=== PATIENT | female | born 1975 | race Hispanic/Latino ===

== ENCOUNTER 2024-11-01 12:29 | Emergency (ER) | payer OTHER ==
[2024-11-01] MEDS ORDERED: Acetaminophen 500 MG TAB ONE (12:57)
[2024-11-01] MEDS ORDERED: Magnesium 2 GM/50 ML BAG (IN WATER) ONE (13:47)
[2024-11-01] MEDS ORDERED: Dexamethasone 10 MG/ML VIAL ONE (13:48)
[2024-11-01] MEDS ORDERED: Ketorolac Tromethamine 30 MG (1 mL) VIAL ONE (13:48)
[2024-11-01] MEDS ORDERED: Lidocaine Viscous Sol 2% 15 ml UD Cup ONE (14:21)
[2024-11-01] MEDS ORDERED: Mag-Al 1200 mg/1200 mg/30 ML UDCUP ONE (14:21)
[2024-11-01 14:40] LABS: BHCG - Serum Indeterminate (NEGATIVE); Pregs Control Background? CLEAR/WHITE (CLR/WHITE); Pregs Control Bar Appear? YES (CONTROL BAR)
[2024-11-01 15:02] LABS: #Basophils 0.1 thou/uL (0.0-0.2); #Eosinophils 0.1 thou/uL (0.0-0.7); #Lymphocytes 1.3 thou/uL (1.20-3.40); #Monocytes 0.2 thou/uL (0.11-0.59); #Neutrophils 5.2 thou/uL (1.40-6.50); %Basophils 0.9 % (0.0-1.0); %Eosinophils 1.2 % (0.0-10.0); %Lymphocytes 18.6 % (21.0-51.0); %Monocytes 3.1 % (0.0-10.0); %Neutrophils 76.3 % (42.0-75.0); Hematocrit 42.8 % (36.0-47.0); Hemoglobin 13.7 g/dL (12.0-16.0); Mean Corpuscular Hemoglobin 28.7 pg (27.0-31.0); Mean Corpuscular Volume 89.6 fl (78.0-98.0); Platelet Count 309 10x3/uL (130-400); Red Blood Cell (RBC) Count 4.78 mill/uL (4.20-5.40); White Blood Cell (WBC) Count 6.8 10x3/uL (4.8-10.8)
[2024-11-01 15:22] LABS: ALT (SGPT) 11 U/L (Less than 34); AST (SGOT) 18 U/L (11-34); Albumin 3.9 g/dL (3.1-4.5); Alkaline Phosphatase 62 U/L (40-110); Anion Gap 14 mmol/L (10-20); BUN (Urea Nitrogen) 12 mg/dL (7.0-18.7); Bilirubin, Total 0.3 mg/dL (0.3-1.2); Calc. Creatinine Clearance 0 mL/min (70-130); Calcium 9.3 mg/dL (7.8-10.44); Carbon Dioxide 25 mmol/L (22-29); Chloride 106 mmol/L (98-107); Globulin 3.4 g/dL (2.4-3.5); Glucose 98 mg/dL (70-105); Potassium 4.2 mmol/L (3.5-5.1); Sodium 141 mmol/L (136-145)
== END 2024-11-01 16:21 | disposition home or self-care (01) ==
LOC: MADERS 12:29
DX: S06.0X0A Concussion without loss of consciousness, initial encounter (principal); R29.700 NIHSS score 0; R89.1 Abnormal level of hormones in specimens from other organs, systems and tissues; W20.8XXA Other cause of strike by thrown, projected or falling object, initial encounter
CPT/HCPCS: 36415; 70450; 80053; 84443; 84702; 84703; 85025; 96374; 96375; J1100; J1885; J3475; J7120; Q0162